=== PATIENT | male | born 1980 | race Caucasian/White ===

== ENCOUNTER 2017-01-02 14:59 | Emergency (ER) | payer BC, OTHER ==
[2017-01-02 15:07] VITALS: BP 127/79
--- NOTE | 2017-01-02 15:38 | ERNOTE ---
Medical Problem HPI - Narrative Date of Service: 01/02/17 - General Chief Complaint: Laceration Time Seen by Provider: 01/02/17 15:09 Source: patient Exam Limitations: no limitations - Immun/Allergies/Home Medications Immunizations: IMMUNIZATION HX Immunizations Up to Date Yes History of Influenza Vaccine Yes Allergies/Adverse Reactions: Allergies Sulfa (Sulfonamide Antibiotics) Allergy (Verified 06/30/15 10:38) Home Medications: HOME MEDICATIONS Cephalexin Monohydrate [Keflex] 500 mg PO QID #40 cap 01/02/17 [Last Taken Unknown] - History of Present History Narrative: Pt. comes in with c/o laceration of R third lateral finger after picking up steel at work. Pt. denies any numbness and tingling and states that the bleeding stopped after 5 minutes of compression. Pt. states that his last tetanus was a year ago. Review of Systems - Review of Systems Constitutional: Present: no symptoms reported. Absent: recent illness, fever, chills, weakness, fatigue, malaise EYE: Present: no symptoms reported ENT: Present: no symptoms reported Respiratory: Present: no symptoms reported. Absent: shortness of breath, cough , wheezing Cardiology: Present: no symptoms reported. Absent: chest pain, palpitations, edema Gastrointestinal/Abdominal: Present: no symptoms reported Genitourinary: Present: no symptoms reported Musculoskeletal: Present: no symptoms reported. Absent: back pain, joint pain Skin: Present: other - laceration lateral 3rd finger R hand Neurological: Present: no symptoms reported. Absent: numbness, tingling All Other Systems: All systems neg except as marked - Patient's Past Medical History Patient History - Medical: No pertinent hx Patient History - Cardiac/Respiratory: No pertinent hx Patient History - Cancer: No Hx of Cancer Patient History - Surgical Procedures: No surgical history Patient History - Other: None - Family History Mother Family History - Cancer: Non Hodgkins Lymphoma Father Family History - Medical: No pertinent hx - Social History Living Situations: home Abuse History: No History of abuse Psych History: Hx of Anxiety, Hx of Depression Smoking Status: Current every day smoker Have you smoked in the past 12 months: Yes Do you dip or chew tobacco: No Alcohol Use: occasionally Drug Use: none - Immunizations Immunizations Up to Date: Yes History of Influenza Vaccine: Yes Physical Exam - Physical Exam General Appearance: Present: wd/wn, alert, no apparent distress Head Exam: Present: normal inspection, no evidence of injury Eye Exam: Normal inspection: bilateral Ears, Nose, Throat: Present: normal ENT inspection, normal pharynx Neck: Present: normal inspection, nontender. Absent: lymphadenopathy (R), lymphadenopathy (L) Respiratory: Present: no respiratory distress, normal breath sounds, no accessory muscle use, chest nontender, lungs clear Cardiovascular/Chest: Present: regular rate, rhythm, no murmur, normal peripheral pulses Back Exam: Present: normal inspection Extremity Exam: Present: normal inspection Neurological Exam: Present: alert, oriented, normal mood/affect, no motor/ sensory deficits Skin Exam: Present: normal color, warm/dry, other - laceration lateral 3rd finger R hand 1.2 cm. Absent: pallor, skin rash ED Progress - Date and Time Seen: Date and Time: 01/02/17 15:17 As pt. flap is superficial irregular and very macerated and already becoming discolored I feel that with suturing the wound will pull apart as flap becomes necrotic and pt. will be left with large hole in finger so will steristrip down flap and allow to heal by secondary intention and promote quick healing. Will have pt. follow up with [facility] in a week for wound evaluation and clearance for full duty without splint as I am prophylactically going to apply finger splint and prescribe abx as pt. moves his fingers alot for his job and wants to continue working as much as possible and his wound was very dirty. - Vital Signs Patient's Vital Signs:: I have reviewed the patient's vital signs. Vital Signs: Vital Signs 01/02/17 15:04 Temperature 37 C Pulse Rate 74 Respiratory 14 Rate Blood Pressure 127/79 O2 Sat by Pulse 100 Oximetry - Progress/Reassessment Chief Complaint: Laceration Procedures Right Lateral Finger 3rd Digit I & D Prep: betadine prep Wound's Depth/Shape: superficial, irregular, flap, contused tissue Wound Explored: contaminated moderately Wound Intervention: irrigated w/saline, debrided moderate, multiple flaps aligned Distal NVT: neuro/vasc intact, no tendon injury Wound Repaired With: Steri-strips Wound Dressing: sterile dressing applied, splint applied Complications: Pt arnav procedure well Departure - Departure Clinical Impression: Laceration Disposition: Home self-care Condition: Good Instructions: Laceration Care, Adult, [id number] Additional Instructions: Please follow up with [facility] or primary provider in a week for wound check Prescriptions: Cephalexin Monohydrate [Keflex] 500 mg PO QID #40 cap
== END 2017-01-02 16:00 | disposition home or self-care (01) ==
LOC: ER 14:59
PROC: 2W3JX1Z Immobilization of Right Finger using Splint (ICD-10-PCS; principal; 2017-01-02)
DX: S61.212A Laceration without foreign body of right middle finger without damage to nail, initial encounter (principal); W45.8XXA Other foreign body or object entering through skin, initial encounter; Y93.89 Activity, other specified; Y92.63 Factory as the place of occurrence of the external cause; Y99.0 Civilian activity done for income or pay; F17.200 Nicotine dependence, unspecified, uncomplicated